=== PATIENT | female | born 1950 | race African-American/Black ===

== ENCOUNTER 2019-12-08 00:59 | Inpatient (IN) | payer MEDICARE, OTHER ==
[~2019-12-08] VITALS: Ht 157.5 cm; Wt 61.5 kg
--- NOTE | 2019-12-08 02:04 | PHYS DOC ---
Past History Past Medical History: Anxiety, Arthritis (KATRINA BARRETT MD) Past Surgical History: Appendectomy, Hysterectomy (KATRINA BARRETT MD) General Adult EDM: Chief Complaint: NAUSEA/VOMITING/DIARRHEA HPI: HPI: ".. I got so sick tonight.. vomiting... severe abdomen pain.. " Patient is a 69 year old female who presents with above hx and complaints of generalized abdomen pain. Onset of pain started approximately 1500 hrs.. No history of trauma. No history of fever chills. Has felt" under the weather". No history of bad food intake. Did have a normal stool yesterday. Has vomited 3 times just prior to arrival emergency department. Does have a history of past appendectomy at age 5 with extensive scarring and hysterectomy. Patient does have a history of hypertension. Has noted she has been urinating excessively the last few days. No history of travel. No history of ill contacts. Normally follows with at [facility]. Patient states she has not followed with Dr. Hart for some time and thinks he may have retired. Patient has been told in the past he has hypertension but quit taking meds and was trying to diet control her hypertension. (KATRINA BARRETT MD) Review of Systems: Review of Systems: Constitutional: Subjective hx of fever Eyes: Denies change in visual acuity HENT: Denies nasal congestion or sore throat Respiratory: shortness of breath because of pain Cardiovascular: Denies chest pain or edema GI: Complains of generalized abdominal pain, nausea, vomiting, and one episode of diarrhea : Denies dysuria Musculoskeletal: Denies back pain or joint pain Integument: Denies rash Neurologic: Denies headache, focal weakness or sensory changes Endocrine: Denies polyuria or polydipsia Lymphatic: Denies swollen glands Psychiatric: anxiety (KATRINA BARRETT MD) Heart Score: HEART Score for Chest Pain: HEART Score for Chest Pain Response (Comments) Value History Moderately Suspicious 1 ECG Nonspecific Repolarizatio 1 Age > 65 2 Risk Factors 1 or 2 Risk Factors 1 Troponin < Normal Limit 0 Total 5 Risk Factors: Risk Factors: DM, Current or recent (<one month) smoker, HTN, HLP, family history of CAD, obesity. Risk Scores: Score 0 - 3: 2.5% MACE over next 6 weeks - Discharge Home Score 4 - 6: 20.3% MACE over next 6 weeks - Admit for Clinical Observation Score 7 - 10: 72.7% MACE over next 6 weeks - Early Invasive Strategies (KATRINA BARRETT MD) Family History: Family History: Noncontributory to presentation (KATRINA BARRETT MD) Current Medications: Current Meds: See nursing for home meds (KATRINA BARRETT MD) Allergies: Allergies: No known drug allergies (KATRINA BARRETT MD) Physical Exam: PE: Constitutional: moderate acute distress, rates abdomen pain is severe, non- toxic appearance. [] HENT: Normocephalic, atraumatic, bilateral external ears normal, oropharynx mois t, no oral exudates, nose normal. [] Eyes: PERRLA, EOMI, conjunctiva normal, no discharge. [] Neck: Normal range of motion, no tenderness, supple, no stridor. [] Cardiovascular: Tachycardia heart rate regular rhythm, no murmur [] Lungs & Thorax: Bilateral breath sounds equal at apex auscultation [] Abdomen: Bowel sounds creased, soft, generalized tenderness, no masses, no pulsatile masses. Moderate distention. Old surgery scars. Significant right lower quadrant surgery scar-appendix. Rebound pain to right lower quadrant. Skin: Warm, mild diaphoretic, no erythema, no rash. [] Back: No tenderness, no CVA tenderness. [] Extremities: No tenderness, no cyanosis, no clubbing, ROM intact, no edema. No psoas sign. Arthritic changes Neurologic: Alert and oriented X 3, moves all extremities on request, has distal, no focal deficits noted. [] Psychologic: Affect very anxious, judgement normal, mood normal. [] (KATRINA BARRETT MD) EKG: EKG: My interpretation EKG shows a sinus rhythm at 85 bpm. She has some nonspecific ST and T wave changes suggestive of ventricular strain. No findings of acute STEMI with contralateral changes. [] (KATRINA BARRETT MD) Radiology/Procedures: Radiology/Procedures: [][address] [address] IMAGING REPORT Signed PATIENT: TEMO SOLIS ACCOUNT: [id number] : 1950 LOCATION: ER AGE: 69 SEX: F EXAM STATUS: REG ER ORD. PHYSICIAN: KATRINA BARRETT MD REASON: NAUSEA,VOMITING, ABD PAIN PROCEDURE: ACUTE ABDOMEN SERIES ACUTE ABDOMEN SERIES History: Nausea, vomiting, abdominal pain Comparison: None. Findings: Frontal chest and supine and upright views of the abdomen. Cardiomediastinal silhouette is normal. There is no pleural effusion or pneumothorax. The lungs are clear. No pneumoperitoneum is identified. There is moderate stool in the colon. No dilated air-filled loops of bowel are seen. Bowel gas pattern is nonobstructive. No obvious organomegaly. Degenerative endplate spurring of the thoracic spine. DJD symphysis pubis. IMPRESSION: 1. No acute cardiopulmonary process. 2. Nonobstructive bowel gas pattern. Electronically signed by: Luis Marques MD (12/08/2019 4:00 AM) [facility] DICTATED AND SIGNED BY: LUIS MARQUES MD DATE: 12/08/19 040 CC: KATRINA BARRETT MD; PCP,NO ~ CT abd. [pending at shift change. (KATRINA BARRETT MD) Radiology/Procedures: PROCEDURE: CT ABD PELV W/ORAL&IV CONTRAST PQRS Compliance Statement: One or more of the following individualized dose reduction techniques were utilized for this examination: 1. Automated exposure control 2. Adjustment of the mA and/or kV according to patient size 3. Use of iterative reconstruction technique CT ABD PELV W/ORAL IV CONTRAST Clinical Indication: .ABD PAIN.HX HYSTERECTOMY / Spl. Instructions: / History: Comparison: None. Technique: Helical CT imaging of the abdomen and pelvis is performed after 75 cc of Omnipaque 300 IV contrast. Oral contrast also administered. Findings: The lung bases are clear. Cardiac size is normal. The liver, gallbladder, spleen, pancreas, adrenal glands, and abdominal aorta caliber are normal. Kidneys enhance symmetrically, no hydronephrosis. There is focal cortical hypoenhancement in the lower pole of the left kidney, for example coronal image 27. There is abdominal and pelvic ascites. The stomach is unremarkable. Oral contrast opacifies multiple proximal small bowel loops. The mid small bowel is dilated and fluid-filled and mildly thick-walled. There is surrounding free fluid and severe edema of the mesentery. Point of transition is a left periumbilical hernia containing a single loop of small bowel. Distal small bowel is decompressed. Ileum demonstrates small bowel feces sign suggesting stasis. There is no colon wall thickening. Urinary bladder is normal. Hysterectomy. DJD of symphysis pubis. Irregular bilateral sacroiliac joints. IMPRESSION: 1. There is high-grade mid small bowel obstruction. Point of transition is left infraumbilical hernia containing a single loop of small bowel. 2. The dilated small bowel is mildly thick-walled suggesting enteritis. 3. There is moderate abdominal and pelvic ascites mainly associated with the small bowel obstruction. 4. There is focal cortical hypoenhancement in the lower pole of the left kidney. Cannot entirely exclude focal pyelonephritis. Electronically signed by: Luis Marques MD (12/08/2019 7:01 AM) [facility] (KAILASH PARNELL DO) Course & Med Decision Making: Course & Med Decision Making Pertinent Labs and Imaging studies reviewed. (See chart for details) Re-exam- after Xray and fluids- Still marked pain. Not passing any gas or stool. Will order CT Abdomen. Suspect possible surgery candidate-we will order COVID testing. Final labs and x-rays pending at shift change.- will disposition of pt. reviewed patient with Dr. Parnell. Impression: 1. Abdomen Pain 2. [id number] with 73 segs 3. Mild hypokalemia 3.4 4. Diabetes= 293 glucose 5. Accelerated HTN 6. Suspect Small Bowel Ileus [] (KATRINA BARRETT MD) Course & Med Decision Making Comprehensive signout obtained from off going physician I reviewed work-up thus far, examined patient and repeated certain aspects of history and physical examination Reviewed findings of diagnostic work-up significant for small bowel obstruction which I feel is contributory to patient's presenting symptoms ER course did not adequately resolve patient's symptoms and so, I recommended admission for further medical management and potential surgical intervention if needed, patient was amenable I talked on-call hospitalist, Dr. Dos Santos, and joint decision to admit to [facility] for bowel rest and serial abdominal exams. At this time, I feel patient's condition will resolve without need for NG tube and/or surgical intervention I relayed this decision with patient who is agreeable for admission. All questions and concerns were addressed prior to ER transfer to [facility] for continued medical management (KAILASH PARNELL DO) Dragon Disclaimer: Dragon Disclaimer: This electronic medical record was generated, in whole or in part, using a voice recognition dictation system. (KATRINA BARRETT MD) Departure Departure: Impression: Primary Impression: SBO (small bowel obstruction) Additional Impression: HTN (hypertension) Disposition: ADMITTED INPATIENT ([facility]) Admitting Physician: Hope Dos Santos (KAILASH PARNELL DO) Condition: STABLE Referrals: PCP,NO (PCP) Justification of Admission: Justification of Admission: Justification of Admission Dx: Yes Comments: S. Bowel Obstruction (KATRINA BARRETT MD) Justification of Admission Dx: Yes (SBO) (KAILASH PARNELL DO) Dragon Disclaimer This chart was dictated in whole or in part using Voice Recognition software in a busy, high-work load, and often noisy Emergency Department environment. It may contain unintended and wholly unrecognized errors or omissions. (KATRINA BARRETT MD) Dragon Disclaimer This chart was dictated in whole or in part using Voice Recognition software in a busy, high-work load, and often noisy Emergency Department environment. It may contain unintended and wholly unrecognized errors or omissions. (KATRINA BARRETT MD) Dragon Disclaimer This chart was dictated in whole or in part using Voice Recognition software in a busy, high-work load, and often noisy Emergency Department environment. It may contain unintended and wholly unrecognized errors or omissions. (KATRINA BARRETT MD) KATRINA BARRETT MD Dec 08, 2019 02:03 KAILASH PARNELL DO Dec 08, 2019 07:22
[2019-12-08] MEDS: MORPHINE SULFATE 10 MG/ML SYRINGE. SQ ONE ×2 (02:58→03:00)
[2019-12-08] MEDS ORDERED: FAMOTIDINE 20 MG/2 ML VIAL IVP ONE (03:00)
[2019-12-08] MEDS ORDERED: cloNIDine TTS-2 1 PATCH PATCH TD ONE (03:00)
[2019-12-08] MEDS ORDERED: IV RINGERS SOLUTION,LACTATED 1,000 ML IV SCH (03:00)
[2019-12-08] MEDS ORDERED: ONDANSETRON PF 4 MG/2 ML VIAL. IVP ONE (03:00)
[2019-12-08] MEDS ORDERED: ONDANSETRON ODT 4 MG TAB.RAPDIS PO ONE (03:00)
[2019-12-08] MEDS ORDERED: cloNIDine HCL 0.1 MG TABLET PO ONE (03:00)
[2019-12-08 03:29] LABS: HEMATOCRIT 46.7 % (36.0-47.0); HEMOGLOBIN 14.8 g/dL (12.0-15.5); MEAN CORPUSCULAR HEMOGLOBIN 26 pg (25-35); MEAN CORPUSCULAR HGB CONC 32 g/dL (31-37); MEAN CORPUSCULAR VOLUME 81 fL (79-100); PLATELET COUNT 286 x10^3/uL (140-400); RED BLOOD COUNT 5.79 x10^6/uL (3.50-5.40); RED CELL DISTRIBUTION WIDTH 14.5 % (11.5-14.5); WHITE BLOOD COUNT 11.2 x10^3/uL (4.0-11.0)
--- NOTE | 2019-12-08 04:03 | RAD ---
ACUTE ABDOMEN SERIES History: Nausea, vomiting, abdominal pain Comparison: None. Findings: Frontal chest and supine and upright views of the abdomen. Cardiomediastinal silhouette is normal. There is no pleural effusion or pneumothorax. The lungs are clear. No pneumoperitoneum is identified. There is moderate stool in the colon. No dilated air-filled loops of bowel are seen. Bowel gas pattern is nonobstructive. No obvious organomegaly. Degenerative endplate spurring of the thoracic spine. DJD symphysis pubis. IMPRESSION: 1. No acute cardiopulmonary process. 2. Nonobstructive bowel gas pattern. Electronically signed by: Luis Marques MD (12/08/2019 4:00 AM) [facility]
[2019-12-08 04:17] LABS: % BANDS 8 % (0-9); % LYMPHS 16 % (24-48); % MONOS 3 % (0-10); % SEGS 73 % (35-66); PLT ESTIMATE ADEQUATE (ADEQUATE)
[2019-12-08 04:25] LABS: CALCIUM 8.7 mg/dL (8.5-10.1); GFR 66.5; POTASSIUM 3.4 mmol/L (3.5-5.1)
[2019-12-08 04:32] LABS: ALBUMIN 3.2 g/dL (3.4-5.0); DIRECT BILIRUBIN 0.1 mg/dL (0.0-0.2); TOTAL BILIRUBIN 0.2 mg/dL (0.2-1.0); TOTAL PROTEIN 6.6 g/dL (6.4-8.2)
[2019-12-08] MEDS ORDERED: cefTRIAXone SODIUM 1 GM VIAL ONE (04:58)
[2019-12-08] MEDS ORDERED: IV NORMAL SALINE 50ML 50 ML ONE (04:58)
[2019-12-08] MEDS ORDERED: IOHEXOL 240 MG/ML 50ML VIAL. ONE (05:10)
[2019-12-08] MEDS ORDERED: KETOROLAC 30 MG/ML VIAL. IVP ONE (05:30)
[2019-12-08] MEDS ORDERED: CONTRAST GIVEN. MC PRN (05:30)
[2019-12-08] MEDS ORDERED: IOHEXOL 300 MG/ML 75 ML VIAL. IV ONE (05:30)
[2019-12-08] MEDS ORDERED: MAGNESIUM HYDROXIDE 2,400 MG/30 ML ORAL.SUSP. PO ONE (05:30)
--- NOTE | 2019-12-08 06:48 | EKG ---
[address] [address] Test Date: 2019-12-08 Test Time: 03:49:44 Pat Name: TEMO SOLIS Department: Room: Gender: F [employer] Driver: JOSÉ MANUEL : 1950 Requested By: KATRINA BARRETT Order Number: [id number] Reading MD: Heraclio Orta MD Measurements Intervals [place] Rate: 85 P: 68 OK: 162 QRS: 22 QRSD: 90 T: 66 QT: 396 QTc: 471 Interpretive Statements SINUS RHYTHM ST & T ABNORMALITY, CONSIDER HIGH LATERAL ISCHEMIA OR LEFT VENTRICULAR STRAIN INFERIOR ISCHEMIA OR LEFT VENTRICULAR STRAIN ABNORMAL ECG RI6.02 No previous ECG available for comparison Electronically Signed On 12-10-2019 13:55:24 CDT by Heraclio Orta MD
[2019-12-08 07:02] LABS: BACTERIA,URINE 0 /HPF (0-FEW); BILIRUBIN,URINE NEG (NEG); CLARITY,URINE CLEAR; COLOR,URINE YELLOW; GLUCOSE,URINE >=1000 mg/dL (NEG); HYALINE CASTS, URINE FEW /HPF; NITRITE,URINE NEG (NEG); SQUAMOUS EPITHELIAL CELL,UR FEW /LPF; UROBILINOGEN,URINE 0.2 mg/dL (0.2 mg/dL)
--- NOTE | 2019-12-08 07:04 | RAD ---
PQRS Compliance Statement: One or more of the following individualized dose reduction techniques were utilized for this examination: 1. Automated exposure control 2. Adjustment of the mA and/or kV according to patient size 3. Use of iterative reconstruction technique CT ABD PELV W/ORAL IV CONTRAST Clinical Indication: .ABD PAIN.HX HYSTERECTOMY / Spl. Instructions: / History: Comparison: None. Technique: Helical CT imaging of the abdomen and pelvis is performed after 75 cc of Omnipaque 300 IV contrast. Oral contrast also administered. Findings: The lung bases are clear. Cardiac size is normal. The liver, gallbladder, spleen, pancreas, adrenal glands, and abdominal aorta caliber are normal. Kidneys enhance symmetrically, no hydronephrosis. There is focal cortical hypoenhancement in the lower pole of the left kidney, for example coronal image 27. There is abdominal and pelvic ascites. The stomach is unremarkable. Oral contrast opacifies multiple proximal small bowel loops. The mid small bowel is dilated and fluid-filled and mildly thick-walled. There is surrounding free fluid and severe edema of the mesentery. Point of transition is a left periumbilical hernia containing a single loop of small bowel. Distal small bowel is decompressed. Ileum demonstrates small bowel feces sign suggesting stasis. There is no colon wall thickening. Urinary bladder is normal. Hysterectomy. DJD of symphysis pubis. Irregular bilateral sacroiliac joints. IMPRESSION: 1. There is high-grade mid small bowel obstruction. Point of transition is left infraumbilical hernia containing a single loop of small bowel. 2. The dilated small bowel is mildly thick-walled suggesting enteritis. 3. There is moderate abdominal and pelvic ascites mainly associated with the small bowel obstruction. 4. There is focal cortical hypoenhancement in the lower pole of the left kidney. Cannot entirely exclude focal pyelonephritis. Electronically signed by: Luis Marques MD (12/08/2019 7:01 AM) [facility]
[2019-12-08 07:05] LABS: BARBITURATES NEG (NEG); BENZODIAZEPINES NEG (NEG); CANNABINOIDS NEG (NEG); COCAINE NEG (NEG); METHADONE NEG (NEG); OPIATES NEG (NEG); PHENCYCLIDINE NEG (NEG)
[2019-12-08 07:06] LABS: AMPHETAMINE/METHAMPHETAMINE NEG (NEG)
[2019-12-08] MEDS ORDERED: IV NORMAL SALINE 1,000ML 1,000 ML IV SCH (07:22)
[2019-12-08] MEDS ORDERED: MORPHINE SULFATE 2 MG/ML DISP.SYRIN. IVP PRN (07:30)
[2019-12-08] MEDS ORDERED: NITROGLYCERIN SUBLINGUAL 0.4 MG BOTTLE OF 25. SL PRN (07:30)
[2019-12-08 08:26] VITALS: BP 132/89
[2019-12-08] MEDS: ONDANSETRON PF 4 MG/2 ML VIAL. IVP PRN ×2 (10:58→15:19)
[2019-12-08 10:59] VITALS: BP 136/84
--- NOTE | 2019-12-08 12:54 | NUR ---
The patient, TEMO SOLIS, 69 y/o, F admitted by CAREN AGUILERA MD, was given written information regarding hospital policies, unit procedures and contact persons. Valuables were checked and height and weight taken.
[2019-12-08 15:01] VITALS: BP 127/91
--- NOTE | 2019-12-08 15:56 | SSS ---
ADMIT DATE: 12/08/2019 HISTORY OF PRESENT ILLNESS: The patient is a 69-year-old -Domin[place] female patient who came to the Emergency Room complaining of nausea, vomiting and diarrhea. It started about 3:00 yesterday afternoon. No history of trauma, fever or chills. No history of bad food intake. She did have a normal stool yesterday, has vomited 3 times just prior to arrival to the Emergency Department. Does have a history of appendectomy when she was 5 years old with extensive scarring and hysterectomy. She does have a history of hypertension. Has noted that she has been urinating excessively the last few days. No history of travel or ill contact. She was evaluated in the Emergency Room and has had lab work and imaging studies. Her CT scan of the abdomen and pelvis showed that the patient has high-grade mid small-bowel obstruction, point of transition is left infraumbilical hernia containing a single loop of small bowel. Dilated small bowel is mildly thick walled suggesting enteritis. There is moderate abdominal and pelvic ascites, mainly associated small-bowel obstruction. There is focal cortical hypoenhancement of the lower pole of the left kidney, cannot entirely exclude focal pyelonephritis. Given the finding of the CT scan, I decided to transfer the patient to [facility] to continue n.p.o., IV fluids and to consult the surgical team. PAST MEDICAL HISTORY: Significant for hypertension; however, the patient is not taking any medication. PAST SURGICAL HISTORY: Significant for appendectomy when she was 5 years old and abdominal hysterectomy. ALLERGIES: She has no known drug allergies. MEDICATIONS: She is currently on no medication. FAMILY HISTORY: Noncontributory to her current problem. SOCIAL HISTORY: She is and lives with her . She does not smoke, drink alcohol or use any recreational drugs. REVIEW OF SYSTEMS: As per history of present illness. PHYSICAL EXAMINATION: GENERAL: When I examined her, she was resting flat in bed, continued to complain of nausea and vomiting and abdominal pain. Her last bowel movement was yesterday and she has not had any flatus since here last night. There is no pallor, jaundice, cyanosis or thyromegaly. No jugular venous distention. No lower limb edema. VITAL SIGNS: Her heart rate was 97, blood pressure was 136/84, temperature was 95.8, respiratory rate was 20, and oxygen saturation was 100% on room air. HEAD, EYES, EARS, NOSE AND THROAT: Showed normocephalic, atraumatic. NECK: Supple. HEART: Showed normal first and second heart sounds with no gallop, rub or murmur. CHEST: Shows central trachea, equal bilateral chest expansion, air entry, vesicular breath sounds. No crepitation or rhonchi. ABDOMEN: Markedly distended with extensive scarring from previous appendectomy and hysterectomy. There is no guarding or rigidity. No organomegaly. Her bowel sounds are sluggish. NEUROLOGIC: She is awake, alert, responding appropriately. All cranial nerves intact. EXTREMITIES: She moves extremities without difficulty. She ambulates without assistance or assistive devices. LABORATORY DATA: Showed a white cell count of 11,200, hemoglobin 14.8, hematocrit 46.7, MCV 81 and platelet count 285,000 with a manual differential showed 73% polymorphs, 8% bands and 16% lymphocytes. Her serum sodium was 141, potassium 3.4, chloride 103, bicarbonate 25, anion gap of 13, BUN 18, creatinine 1, estimated GFR was 66 mL per minute. Her glucose was 293, calcium was 8.7. Total bilirubin, AST, ALT, alkaline phosphatase were normal. Total CK was 112, total protein was 6.6, albumin 3.2, lipase 150. Her prothrombin time, INR and aPTT are normal. Urinalysis was essentially unremarkable. Toxic screen was negative. Acute abdomen series showed no acute cardiopulmonary process, nonobstructive bowel gas pattern; however, CT scan of the abdomen and pelvis with oral IV contrast showed the lung bases are clear, cardiac size is normal. The liver, gallbladder, spleen, pancreas, adrenal glands and abdominal aorta caliber are normal. Kidneys enhance symmetrically, no hydronephrosis. There is focal cortical hypoenhancement in the lower pole of the left kidney, for example in the coronal image 27. There is abdominal and pelvic ascites. The stomach is unremarkable. Oral contrast opacifies multiple proximal small bowel loops, the mid small bowel loop is dilated and fluid filled and mildly thick walled. There is surrounding free fluid and severe edema of the mesentery, point of transition in the left periumbilical hernia containing a single loop of the small bowel, distal small bowel is decompressed, ileum demonstrates small bowel feces sign suggesting stasis. There is no colon wall thickening. Urinary bladder is normal. She is status post hysterectomy. There is degenerative joint disease of symphysis pubis, irregular bilateral sacroiliac joint with the impression that the patient has high-grade mid small-bowel obstruction, point of transition is left infraumbilical hernia containing a single loop of small bowel. The dilated small bowel is mildly thick walled suggesting enteritis. There is moderate abdominal and pelvic ascites, mainly associated with small-bowel obstruction. There is focal cortical hypoenhancement in the lower pole of the left kidney, cannot entirely exclude focal pyelonephritis. The patient will be transferred to [facility] to consult the surgical team. Continue with IV fluids, IV antibiotic. FINAL DISCHARGE DIAGNOSES: 1. High-grade small-bowel obstruction. 2. Hypertension, although her blood pressure is actually anything well within acceptable range. CAREN AGUILERA MD DR: KIMBERLI/franny JOB#: [id number] / [id number]
[2019-12-08 18:37] VITALS: BP 151/84
--- NOTE | 2019-12-08 19:55 | NUR ---
PATIENT TRANSFERRED TO [facility] FOR CONTINUUM OF CARE D/T SMALL BOWEL OBSTRUCTION. 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 UPON ARRIVAL PATIENT STATED SHE NEEDED TO USE THE RESTROOM. PATIENT HAD FAINTING SPELL COMING BACK FROM THE BATHROOM. NO INJURIES NOTED. PATIENT VERY DIAPHORETIC ON ASSESSMENT. VS TAKEN AND WNL. BS 139. NO C/O PAIN OR DIZZINESS NOTED. PATIENT STATES SHE DOES NOT REMEMBER FAINTING, JUST WAKING UP ON THE FLOOR. DR. AGUILERA CALLED AND MADE AWARE OF FAINTING EPISODE. NO ORDERS RECEIVED. PATIENT GIVEN TIME TO REST AND RECOVER IN BED. THEN TRANSFERRED FROM [facility] TO [facility] PER EMS AT 1945. PATIENT STABLE ON TIME OF DISCHARGE, ALL PATIENT BELONGINGS AND PATIENT INFORMATION SENT WITH PATIENT.
== END 2019-12-08 19:45 | disposition short-term general hospital (02) | DRG 389 ==
LOC: ER 00:59 → 1 SOUTH 07:18
PROVIDERS: ADMIT Internal Medicine; ATTEND Internal Medicine
DX: K56.609 Unspecified intestinal obstruction, unspecified as to partial versus complete obstruction (principal); E44.0 Moderate protein-calorie malnutrition; N12 Tubulo-interstitial nephritis, not specified as acute or chronic; R18.8 Other ascites; K52.89 Other specified noninfective gastroenteritis and colitis; E11.9 Type 2 diabetes mellitus without complications; E87.6 Hypokalemia; I10 Essential (primary) hypertension; Z90.49 Acquired absence of other specified parts of digestive tract; Z90.710 Acquired absence of both cervix and uterus; F41.9 Anxiety disorder, unspecified; M19.90 Unspecified osteoarthritis, unspecified site; Z68.24 Body mass index [BMI] 24.0-24.9, adult
CPT/HCPCS: 36415; 74022; 74177; 80048; 80076; 80307; 81001; 82550; 82947; 83690; 84484; 85007; 85025; 85610; 85730; 87040; 93005; 96361; 96365; 96375; J0696; J1885; J2270; J2405; J3490; J7120; Q0162; Q9967; 99285-25; J7030